=== PATIENT | male | born 1980 | race Hispanic/Latino ===

== ENCOUNTER 2021-09-25 06:32 | Observation (INO) | payer BC ==
[~2021-09-25] VITALS: Ht 175.3 cm; Wt 145.0 kg
[2021-09-25] VITALS (25 sets, daily range): BP systolic 139–199; BP diastolic 80–138
[~2021-09-25 06:32] MED LIST: FLEXERIL OR; NAPROSYN500 MG OR; NO MEDS
--- NOTE | 2021-09-25 06:56 | NUR ---
PT IN ROOM, ON MONITOR, WITH SPOUSE AT BEDSIDE.
--- NOTE | 2021-09-25 07:00 | NUR ---
REPORT GIVEN TO BRYANNA ESTEVES.
[2021-09-25 07:10] LABS: HEMATOCRIT 45.1 % (39.0-50.0); HEMOGLOBIN 14.3 g/dl (14.0-18.0); IMMATURE GRANULOCYTES 0.3 % (0.0-5.0); MEAN CELL VOLUME 87.4 fL CALC (80.0-100.0); MEAN CORPUSCULAR HGB 27.7 pG CALC (26.0-32.0); MEAN CORPUSCULAR HGB CONC 31.7 g/dL CAL (32.0-36.0); NEUT# 7.68 thou/uL (1.82-7.42); RED BLOOD COUNT 5.16 mill/uL (4.70-6.10); RED CELL DISTRI WIDTH 16.7 % (11.5-15.5)
[2021-09-25 07:23] LABS: ALBUMIN 3.9 g/dL (3.2-5.0); ALKALINE PHOSPHATASE 94 u/l (38-126); ANION GAP 12 (6-22 (CALC)); BILIRUBIN, TOTAL 0.6 mg/dL (0.0-1.4); BUN 14 mg/dL (9-20); BUN/CREATININE RATIO 15 (12-20 (CALC)); CARBON DIOXIDE 27 mmol/l (22-30); CHLORIDE 106 mmol/l (95-108); CREATININE 0.9 mg/dL (0.7-1.3); GFR > 60 ML/MIN (>=60 (CALC)); GFR FOR AFR.AMER. > 60 ML/MIN (>=60 (CALC)); POTASSIUM 4.1 mmol/l (3.5-5.1); SGOT/AST 31 u/l (17-59); SODIUM 140 mmol/l (137-146)
[2021-09-25 07:35] LABS: MYOGLOBIN 79 ng/mL (0 - 121)
[2021-09-25 07:48] LABS: ACT PARTIAL THROMBO TIME 27.4 SECONDS (20.0-32.5); PROTHROMBIN TIME 10.3 SECONDS (9.0-12.5)
[2021-09-25 07:55] LABS: D-DIMER 0.22 mg/L (0.19-0.60)
[2021-09-25 08:50] LABS: URINE BILIRUBIN - DIPSTICK NEGATIVE (NEGATIVE); URINE BLOOD DIPSTICK NEGATIVE (NEGATIVE); URINE COLOR YELLOW; URINE GLUCOSE - DIPSTICK NEGATIVE (NEGATIVE); URINE KETONE NEGATIVE (NEGATIVE); URINE LEUK ESTERASE NEGATIVE (NEGATIVE); URINE PROTEIN - DIPSTICK NEGATIVE (NEG-TRACE); URINE SPECIFIC GRAVITY 1.015; URINE UROBILINOGEN - DIPSTICK 0.2 E.U./dL (0.2)
[2021-09-25 08:54] LABS: URINE NITRITE - DIPSTICK NEGATIVE (Negative)
[2021-09-25] MEDS ORDERED: PROAIR HFA108 MCG/AC INHW/SPAC (09:02)
[2021-09-25] MEDS ORDERED: LISINOPRIL10 MG PO (09:03)
[2021-09-25] MEDS ORDERED: METOPROL TAR25 MG PO (09:03)
--- NOTE | 2021-09-25 10:01 | NUR ---
PATIENT BP NOW 136/92. PATIENT HAS HAD ELEVATED BP THE ENTIRE VISIT. CLONIDINE, LABETALOL, AND HYDRALAZINE ALL ADMINISTERED. AWAITING ADMISSION AT THIS TIME.
--- NOTE | 2021-09-25 12:17 | NUR ---
REPORT GIVEN TO [facility] 2ND FLOOR. TRANSPORT PATIENT TO ROOM 269.
--- NOTE | 2021-09-25 12:30 | NUR ---
PT ARRIVED TO FLOOR VIA STRETCHER ACCOMPAINED BY ER STAFF AND FAMILY MEMBER. PT ALERT AND ORIENTED X4. NO APPARENT DISTRESS NOTED. ON 4L/M VIA NC, RESPIRATIONS LABORED. CURRENT SAT 93-97%. LUNCH PROVIDED, PT SITTING UP AT BEDSIDE TO EAT. VALUABLES SENT HOME WITH PT . ORIENTED TO ROOM AND CALL LIGHT SYSTEM. SAFETY PRECAUTIONS AND POC DISCUSSED. PT VERBALIZED UNDERSTANDING. CALL LIGHT WITHIN REACH. WILL CONTINUE TO MONITOR.
--- NOTE | 2021-09-25 22:05 | NUR ---
PHYSICAL ASSESMENT COMPLETE. PT CURRENTLY DENIES PAIN OR DISCOMFORT. SCHEDULED MEDICATIONS AND PRN MEDICATION ADMINISTERED, SEE E-MAR. PT DENIES ANY NEEDS AT THIS TIME. PLAN OF CARE REVIEWED, PT DENIES QUESTIONS, VERBALIZES UNDERSTANDING. ITEMS WITHIN REACH, BED LOCKED IN LOW POSITION W/ BEDRAILS UP X2. CALL CAICEDO WITHIN REACH, AGREES TO CALL PRN.
--- NOTE | 2021-09-25 22:42 | NUR ---
NOTIFIED BY MONITOR ROOM THAT PT'S HEART RATE HAD PLUDGED DOWN TO THE 30S IN WHAT APPEARED TO A HEART BLOCK ON THE STRIP. PT CONTACTED AND WAS COMPLETELY ASYMPTOMATIC. COMPLETE SET OF VITAL PREFORMED. ALL VITALS WITHIN NORMAL RANGE. ECG ORDERED. LOUISE REVEALED NORMAL SINUS RHYTHM. MAGNESIUM, ELECTROLYTES AND TROPS ORDERED FROM THE LAB, PER LOSS PREVENTION RESEARCH ENGINEER RECOMMENDATION. FULL REPORT OF EVENTS WAS GIVEN TO DR RIZVI AT 0171. SENT STRIPS TO DR RIZVI. DR RIZVI ORDERED THE TROPONINS CANCELLED AND THE PT TO REMAIN ON MED/SURG. FURTHER ADVISED THAT LOPRESSOR WOULD BE CANCELLED. PT SEEN SLEEPING ASYMPTOMATIC. PT ADVISED TO CALL NURSE IF HE FELT ANY CHEST PAIN, PRESSURE, FLUTTERING. TELEMENTRY LEADS VERIFIED. WILL CONTINUE TO MONITOR.
[2021-09-25 22:54] LABS: BUN 18 mg/dL (9-20); BUN/CREATININE RATIO 20 (12-20 (CALC)); CHLORIDE 108 mmol/l (95-108); CREATININE 0.9 mg/dL (0.7-1.3); GFR > 60 ML/MIN (>=60 (CALC)); GFR FOR AFR.AMER. > 60 ML/MIN (>=60 (CALC)); POTASSIUM 4.5 mmol/l (3.5-5.1); SODIUM 138 mmol/l (137-146)
[2021-09-25 22:58] LABS: ANION GAP 14 (6-22 (CALC)); CARBON DIOXIDE 21 mmol/l (22-30)
[2021-09-26] VITALS (14 sets, daily range): BP systolic 139–197; BP diastolic 80–135
--- NOTE | 2021-09-26 01:25 | NUR ---
RAPID RESPONSE CALLED FOR PT BY ER BRANCH MANAGER IN RESPONSE TO WHAT APPEARS TO BE A 7 SECOND PAUSE ON TELEMENTRY. PT ASYMTOMATIC TO PAUSE. VITAL CHECKED AND WITHIN NORMAL LIMITS. HEART ASSESSMENT PREFORM. DR RIZVI NOTIFIED OF EVENT. NO NEW ORDERS GIVEN.
--- NOTE | 2021-09-26 03:18 | NUR ---
SECOND RAPID RESPONSE CALLED DUE TO PT'S 6 SECOND PAUSE. PT WAS ASYMTOMATIC AND STATES HE IS FINE. PT VITAL WITHIN NORMAL LIMITS. DR RIZVI CONTACTED BY VISION MIXER; NO NEW ORDERS GIVING.
[2021-09-26 05:23] LABS: HEMATOCRIT 46.2 % (39.0-50.0); HEMOGLOBIN 14.5 g/dl (14.0-18.0); MEAN CELL VOLUME 88.5 fL CALC (80.0-100.0); MEAN CORPUSCULAR HGB 27.8 pG CALC (26.0-32.0); MEAN CORPUSCULAR HGB CONC 31.4 g/dL CAL (32.0-36.0); RED BLOOD COUNT 5.22 mill/uL (4.70-6.10); RED CELL DISTRI WIDTH 17.5 % (11.5-15.5)
[2021-09-26 05:33] LABS: ANION GAP 16 (6-22 (CALC)); BUN 20 mg/dL (9-20); BUN/CREATININE RATIO 22 (12-20 (CALC)); CARBON DIOXIDE 23 mmol/l (22-30); CHLORIDE 108 mmol/l (95-108); CREATININE 0.9 mg/dL (0.7-1.3); GFR > 60 ML/MIN (>=60 (CALC)); GFR FOR AFR.AMER. > 60 ML/MIN (>=60 (CALC)); MAGNESIUM 2.2 mg/dL (1.6-2.3); POTASSIUM 4.5 mmol/l (3.5-5.1); SODIUM 142 mmol/l (137-146)
--- NOTE | 2021-09-26 05:53 | NUR ---
PATIENTS O2 SAT DROPS INTO THE HIGH 70% AND FOLLOWED BY CARDIAC PAUSE LASTING 3-[address] RIZVI CALLED AND INFORMED OF PATIENTS CONDITION. NEW ORDERS GIVEN FOR BIPAP.
--- NOTE | 2021-09-26 06:02 | NUR ---
RT PLACED PATIENT ON BIPAP
--- NOTE | 2021-09-26 06:14 | NUR ---
HYDRALAZINE GIVEN FOR BP 197/120
--- NOTE | 2021-09-26 07:15 | NUR ---
BIPAP STANDBY. PT ON RA. O2 SAT 97%.
--- NOTE | 2021-09-26 07:28 | NUR ---
Patient is screned for intervention but needs are immediately identified. Please consult if help needed with energy conservation, mobilization, or proning and chest physical therapy
--- NOTE | 2021-09-26 07:38 | NUR ---
PT SEEN INITIALLY WITH BiPAP IN PLACE HE RESTS IN THE BED. PT WANTED TO BE IN CHAIR, SO BiPAP WAS DISCONTINUED AND PT SATS 96% RA. NO PAUSES WHILE AWAKE. PT HEARD ON PHONE UPDATING FAMILY.
--- NOTE | 2021-09-26 12:18 | NUR ---
PT USING BIPAP WHEN RESTING, NO FURTHER EPISODES OF PAUSES. AND DAUGHTER AT BEDSIDE. PT AWARE OF PENDING TRANSFER TO [facility] TOMORROW MORNING.
--- NOTE | 2021-09-26 15:23 | NUR ---
[facility] CALLED TO SAY THAT THEY WOULD HAVE A BED AVAILABLE TOMORROW MORNING. THEY WILL CALL WITH ROOM NUMBER THEN. PT AND DOCTOR MADE AWARE.
--- NOTE | 2021-09-26 17:14 | NUR ---
[facility] CALLED TO SAY THAT THEY HAVE A BED AVAILABLE TONIGHT. TRANSFER ORDER FAXED TO THEM WHICH DR RIZVI HAD FILLED OUT.
--- NOTE | 2021-09-26 20:05 | NUR ---
YARON FROM [facility] CALLED TO THIS NURSE WITH A BED FOR [facility] ROOM NUMBER [id number]. STEVAN CALLED WITH INFORMATION AND ETA WAS GIVEN TO THIS NURSE OF 30MINS.
--- NOTE | 2021-09-26 20:06 | NUR ---
PATIENT RESTING IN BED AT THIS TIME [facility] DENIES ANY NEEDS PATIENT GIVEN 1.25MG OF VASOTEC IV DUE TO BP OF 180/108. PATIENT DENIES ANY PAIN AT THIS TIME AND OR SHORTNESS OF BREATH SPO2 ON ROOM AIR IS CURRENTLY 97%. FERMENTER HELPER READING ST HR OF 96. IV PATENT IN R AC #20 AND IS SALINE LOCKED AND FLUSHED. PATIENT GIVEN REPORT ON TRANSFER TO [facility] AND IS AWARE THAT HE WILL BE LEAVING TONIGHT. SIDERAILS ARE UP CALL LIGHT IS WITHIN REACH.
--- NOTE | 2021-09-26 20:45 | NUR ---
STEVAN HERE AT THIS TIME TO TAKE PATIENT TO [facility] IN [place]. PATIENT ALERT AND ORIENTED AT THIS TIME AND ALL BELONGINGS WERE SENT WITH PATIENT. REPORT CALLED TO MARY ESTEVES ON UN[facility] AT THIS TIME.
== END 2021-09-26 20:45 | DRG 194 ==
LOC: ED 06:32 → ICU 10:10 → MS2 10:10 → ED 10:10 → MS2 10:10 → ED 12:15 → UNDODEPER 12:19 → ICU 09-26 05:30 → MS2 09-26 05:30 → ICU 09-26 05:31
PROVIDERS: Family Medicine; ADMIT Hospitalist; ATTEND Hospitalist
PROC: 5A09357 Assistance with Respiratory Ventilation, Less than 24 Consecutive Hours, Continuous Positive Airway Pressure (ICD-10-PCS; principal; 2021-09-26)
DX: J18.9 Pneumonia, unspecified organism (principal); Z68.42 Body mass index [BMI] 45.0-49.9, adult; R00.1 Bradycardia, unspecified; R09.02 Hypoxemia; G47.30 Sleep apnea, unspecified; E66.01 Morbid (severe) obesity due to excess calories; I10 Essential (primary) hypertension; J45.909 Unspecified asthma, uncomplicated; Z86.16 Personal history of COVID-19; Z20.822 Contact with and (suspected) exposure to COVID-19
CPT/HCPCS: G0378; Q9967

== ENCOUNTER 2021-12-15 01:50 | Emergency (ER) | payer BC ==
[~2021-12-15] VITALS: Ht 175.3 cm; Wt 142.2 kg
[~2021-12-15 01:50] MED LIST changes: +LISINOPRIL10 MG PO; +METOPROL TAR25 MG PO; +PROAIR HFA108 MCG/AC INHW/SPAC
[2021-12-15 02:22] VITALS: BP 166/105
[2021-12-15 02:31] VITALS: BP 162/101
[2021-12-15 02:54] LABS: HEMOGLOBIN 15.4 g/dl (14.0-18.0); IMMATURE GRANULOCYTES 0.2 % (0.0-5.0); MEAN CELL VOLUME 89.6 fL CALC (80.0-100.0); MEAN CORPUSCULAR HGB 28.7 pG CALC (26.0-32.0); MEAN CORPUSCULAR HGB CONC 32.1 g/dL CAL (32.0-36.0); NEUT# 8.37 thou/uL (1.82-7.42); RED BLOOD COUNT 5.36 mill/uL (4.70-6.10)
[2021-12-15 03:06] LABS: ALBUMIN 4.3 g/dL (3.2-5.0); ALKALINE PHOSPHATASE 96 u/l (38-126); ANION GAP 13 (6-22 (CALC)); BILIRUBIN, TOTAL 0.5 mg/dL (0.0-1.4); BUN 26 mg/dL (9-20); BUN/CREATININE RATIO 27 (12-20 (CALC)); CARBON DIOXIDE 26 mmol/l (22-30); CHLORIDE 105 mmol/l (95-108); GFR FOR AFR.AMER. > 60 ML/MIN (>=60 (CALC)); GFR OTHER RACES > 60 ML/MIN (>=60 (CALC)); POTASSIUM 3.6 mmol/l (3.5-5.1); SGOT/AST 29 u/l (17-59); SODIUM 140 mmol/l (137-146); TOTAL PROTEIN 7.8 g/dL (6.3-8.2)
[2021-12-15 03:19] LABS: MYOGLOBIN 98 ng/mL (0 - 121)
[2021-12-15] MEDS ORDERED: MAXZIDE PO (04:21)
[2021-12-15 04:22] LABS: URINE BILIRUBIN - DIPSTICK NEGATIVE (NEGATIVE); URINE BLOOD DIPSTICK NEGATIVE (NEGATIVE); URINE COLOR YELLOW; URINE GLUCOSE - DIPSTICK NEGATIVE (NEGATIVE); URINE KETONE NEGATIVE (NEGATIVE); URINE LEUK ESTERASE NEGATIVE (NEGATIVE); URINE PROTEIN - DIPSTICK NEGATIVE (NEG-TRACE); URINE SPECIFIC GRAVITY 1.025; URINE UROBILINOGEN - DIPSTICK 0.2 E.U./dL (0.2)
[2021-12-15 04:23] LABS: URINE NITRITE - DIPSTICK NEGATIVE (Negative)
[2021-12-15] MEDS ORDERED: MECLIZINE25 MG PO (04:32)
== END 2021-12-15 04:45 | disposition home or self-care (01) | DRG 149 ==
LOC: ED 01:50
PROVIDERS: Family Medicine
DX: R42 Dizziness and giddiness (principal); I10 Essential (primary) hypertension; Z86.16 Personal history of COVID-19; Z20.822 Contact with and (suspected) exposure to COVID-19